=== PATIENT | female | born 1970 | race Caucasian/White ===

== ENCOUNTER 2018-10-01 09:35 | Emergency (ER) | payer MEDICAID | END 2018-10-01 11:53 | disposition home or self-care (01) | LOC: FTE 09:35 | DX: S52.502A Unspecified fracture of the lower end of left radius, initial encounter for closed fracture (principal); F17.210 Nicotine dependence, cigarettes, uncomplicated; V00.831A Fall from motorized mobility scooter, initial encounter; Y92.9 Unspecified place or not applicable | CPT/HCPCS: 29125; 73110-LT; 99283-25 ==